=== PATIENT | male | born 1975 ===

== ENCOUNTER → 2022-12-15 07:44 | Outpatient (CLI) | payer OTHER, SELFPAY ==
--- NOTE | ~2022-12-15 | MR_ITS ---
MRI of the cervical spine Clinical History: Radiculopathy Technique: Axial T2-weighted and gradient images, and sagittal T1-weighted, T2-weighted, and STIR christi ges were acquired. Findings: There is no fracture or subluxation of the cervical spine. Vertebral bodies maintain normal height and alignment. No focal bone marrow signal abnormality seen. At C2-C3, there is no disc bulge or herniation. No spinal canal stenosis, cord compression, or neural foraminal narrowing. At C3-C4, there is disc osteophyte complex, resulting in mild canal stenosis but no citlalli cord compre ssion. There is bilateral neural foraminal narrowing, right worse than left, with mild facet arthropa thy, right worse than left. At C4-C5, there is mild disc osteophyte complex and right facet arthropathy. There is right neural fo raminal narrowing. Left neural foramen preserved. No spinal canal stenosis or cord compression. At C5-C6, there is mild facet arthropathy and minimal disc osteophyte complex. Possible minimal right neural foraminal narrowing. No left neural foraminal narrowing. No central canal stenosis or cord co mpression. At C6-C7, there is no disc bulge or herniation. No spinal canal stenosis, cord compression, or neural foraminal narrowing. No abnormal signal seen in the spinal cord. Paravertebral soft tissues are unremarkable. Impression: Moderate degenerative spondylosis at C3-C4, as detailed above. Mild degenerative change at C4-C5 and C5-C6, as detailed above. Reviewed, dictated and finalized at [facility]. Impression: Moderate degenerative spondylosis at C3-C4, as detailed above. Mild degenerative change at C4-C5 and C5-C6, as detailed above.
== END ==
PROVIDERS: PCP Internal Medicine; Visit Provider Chiropractor
DX: M47.22 Other spondylosis with radiculopathy, cervical region (principal)
CPT/HCPCS: 72141

== ENCOUNTER → 2023-01-18 12:47 | Outpatient (CLI) | payer OTHER, SELFPAY ==
--- NOTE | ~2023-01-18 | MR_ITS ---
EXAMINATION: MR thoracic spine wo con DATE: 01/18/2023 13:14 INDICATION: Thoracic radiculopathy. Upper back pain. TECHNIQUE: Magnetic resonance imaging (MRI) of the thoracic spine was performed without intravenous c ontrast. COMPARISON: Cervical spine MRI 12/15/2022 FINDINGS: There is 5 degrees levocurvature of cervicothoracic spine. Vertebral body heights are edyta l. Intervertebral disc heights are normal. The discs do not extend beyond the endplate margins. There is multilevel mild facet joint osteoarthritis. No neural foraminal stenosis. No central canal stenos is. The spinal cord signal intensity is normal. The conus medullaris is at T12-L1. IMPRESSION: 1. Mild thoracic facet joint osteoarthritis. Reviewed, dictated and finalized at location A.
== END ==
PROVIDERS: PCP Anesthesiology; Visit Provider Anesthesiology
DX: M47.24 Other spondylosis with radiculopathy, thoracic region (principal)
CPT/HCPCS: 72146